=== PATIENT | male | born 1995 | race African-American/Black ===

== ENCOUNTER 2019-04-28 22:01 | Emergency (ER) | payer SELFPAY ==
[2019-04-28] MEDS ORDERED: Ibuprofen 200 MG TAB ONE (22:33)
--- NOTE | 2019-04-28 23:20 | RAD ---
RIGHT HAND: 04/28/19 Three views. HISTORY: Injury. Carpals appear intact. Metacarpals and phalanges appear intact. IMPRESSION: No acute fracture identified. POS: [facility]
== END 2019-04-28 23:16 | disposition home or self-care (01) ==
LOC: ERS 22:01
DX: S60.221A Contusion of right hand, initial encounter (principal); F17.210 Nicotine dependence, cigarettes, uncomplicated; Y04.0XXA Assault by unarmed brawl or fight, initial encounter